=== PATIENT | male | born 1970 | race Two or more races ===

== ENCOUNTER 2016-07-01 18:36 | Inpatient (IN) | payer MEDICAID ==
[~2016-07-01] VITALS: Ht 177.8 cm; Wt 106.1 kg
[~2016-07-01 18:36] MED LIST: PRILOSEC20 MG ORAL; ZOFRAN4 MG ORAL
[2016-07-01 19:10] VITALS: BP 155/85
[2016-07-01] MEDS ORDERED: Nitroglycerin Subl 0.4mg tab (Bottle Of 25) SL PRN (19:30)
[2016-07-01] MEDS ORDERED: ATORVASTATIN CA20 MG ORAL (19:50)
[2016-07-01] MEDS ORDERED: AMIODARONE HCL200 MG ORAL (19:50)
[2016-07-01] MEDS ORDERED: MELATONIN1 MG PO (19:50)
[2016-07-01] MEDS ORDERED: PROPRANOLOL HCL10 MG ORAL (19:50)
[2016-07-01] MEDS ORDERED: NITROSTAT0.4 M2 SL (19:50)
[2016-07-01] MEDS ORDERED: DEPAKOTE250 MG PO (19:50)
[2016-07-01] MEDS ORDERED: HYDRALAZINE HCL25 M1 ORAL (19:50)
[2016-07-01] MEDS ORDERED: PRIMIDONE50 MG PO (19:50)
[2016-07-01] MEDS ORDERED: DIOVAN160 MG ORAL (19:50)
[2016-07-01] MEDS ORDERED: ARICEPT10 MG ORAL (19:50)
[2016-07-01] MEDS ORDERED: FOLIC ACID1 MG ORAL (19:50)
[2016-07-01] MEDS ORDERED: COLACE100 MG ORAL (19:50)
[2016-07-01] MEDS ORDERED: CALCIUM + D SO1 EACH PO (19:50)
[2016-07-01 20:10] VITALS: BP 137/71
[2016-07-01 20:25] LABS: BASOPHILS % (AUTO) 1.5 % (0.0-2.0); LYMPHOCYTES % (AUTO) 28.5 % (20.0-45.0); MEAN CORPUSCULAR HEMOGLOBIN 28.9 PG (27.0-31.0); MEAN CORPUSCULAR HGB CONC 32.6 G/DL (32.0-36.0); MEAN CORPUSCULAR VOLUME 89 FL (80-99); MEAN PLATELET VOLUME 5.9 FL (6.5-10.1); MONOCYTES % (AUTO) 11.5 % (1.0-10.0); NEUTROPHILS % (AUTO) 54.6 % (45.0-75.0); PLATELET COUNT 272 K/UL (150-450); RED BLOOD COUNT 4.65 M/UL (4.70-6.10); RED CELL DISTRIBUTION WIDTH 12.2 % (11.6-14.8); WHITE BLOOD COUNT 6.8 K/UL (4.8-10.8)
[2016-07-01 20:34] LABS: ALANINE AMINOTRANSFERASE 16 U/L (3-41); ALBUMIN/GLOBULIN RATIO 1.5 (1.0-2.7); ANION GAP 15 (5-15); ASPARTATE AMINO TRANSFERASE 17 U/L (5-40); CALCIUM 9.4 mg/dL (8.6-10.2); CARBON DIOXIDE 26 mEQ/L (20-30); CHLORIDE 100 mEQ/L (98-107); CREATININE 0.9 mg/dL (0.7-1.2); GLOMERULAR FILTRATION RATE > 60 mL/min (>60); HEMOLYSIS 7; POTASSIUM 4.1 mEQ/L (3.4-4.9); SODIUM 141 mEQ/L (135-145); TOTAL PROTEIN 7.5 g/dL (6.6-8.7)
[2016-07-01 20:35] LABS: TROPONIN I < 0.30 ng/mL (<=0.30)
[2016-07-01 20:46] LABS: CKMB 2.7 ng/mL (< 6.7)
--- NOTE | 2016-07-01 21:44 | Emergency Room Report ---
History of Present Illness General Chief Complaint: Hypertension Source: Patient Present Illness HPI 45-year-old male presents ED for evaluation. Patient states he's been having chest pain x1 day. Pain is sharp, left-sided, 7/10, radiating up the neck and down the shoulder. No aggravating relieving factors. Denies shortness of breath. Denies fevers chills. Notes history of hypertension and states that he ran out of his blood pressure medication 3 months ago. Denies smoking or drug use. Denies any other associated symptoms Allergies: Coded Allergies: No Known Allergies (Unverified , 09/13/15) Patient History Past Medical History: HTN Past Surgical History: none Pertinent Family History: none Social History: Denies: alcohol use, drug use, smoking Immunizations: UTD Reviewed Nursing Documentation: PMH: Agreed, PSxH: Agreed Nursing Documentation-PMH Past Medical History: No History, Except For Hx Hypertension: Yes Review of Systems All Other Systems: negative except mentioned in HPI Physical Exam Vital Signs Date Time Temp Pulse Resp B/P Pulse Ox O2 Delivery O2 Flow Rate FiO2 07/01/16 19:05 98.1 75 16 155/85 99 Room Air Sp02 EP Interpretation: reviewed, normal General Appearance: no apparent distress, alert, GCS 15, non-toxic Head: normocephalic, atraumatic Eyes: bilateral eye PERRL, bilateral eye normal inspection ENT: hearing grossly normal, normal pharynx, no angioedema, normal voice Neck: full range of motion, supple/symm/no masses Respiratory: chest non-tender, lungs clear, normal breath sounds, speaking full sentences Cardiovascular #1: regular rate, rhythm, no edema Cardiovascular #2: 2+ carotid (R), 2+ carotid (L), 2+ radial (R), 2+ radial (L) , 2+ dorsalis pedis (R), 2+ dorsalis pedis (L) Gastrointestinal: normal bowel sounds, non tender, soft, non-distended, no guarding, no rebound Rectal: deferred Genitourinary: normal inspection, no CVA tenderness Musculoskeletal: back normal, gait/station normal, normal range of motion, non- tender Neurologic: alert, oriented x3, responsive, motor strength/tone normal, sensory intact, speech normal Psychiatric: judgement/insight normal, memory normal, mood/affect normal, no suicidal/homicidal ideation Reflexes: 3+ bicep (R), 3+ bicep (L), 3+ tricep (R), 3+ tricep (L), 3+ knee (R) , 3+ knee (L) Skin: normal color, no rash, warm/dry, well hydrated Lymphatic: no adenopathy Medical Decision Making Diagnostic Impression: Primary Impression: ACS (acute coronary syndrome) ER Course Hospital Course 45-year-old male presents ED complaining of left-sided chest pain, h/o hypertension Differential diagnoses include: MT/unstable angina, contusion, muscle strain, PTX, rib fracture Clinical course Patient placed on stretcher. on family practice doctor. After initial history and physical I ordered labs, EKG, chest x-ray, ASA, NTG labs reviewed- no leukocytosis, hb/hct stable, electrolytes ok, trop negative Chest x-ray- no acute process EKG - no acute ischemic changes Case discussed with Dr. Edmond and he agreed to accept the patient to his service for further care and support I. I feel this is a highly complex case requiring extensive working including EKG/Rhythm strip, Xray/CT/US, Blood/urine lab work, repeat exams while in ED, and administration of strong opiates/narcotics for pain control, admission to hospital or close patient follow up. Diagnosis - ACS admitted to telemetry in serious condition Labs Test 07/01/16 19:57 White Blood Count 6.8 K/UL (4.8-10.8) Red Blood Count 4.65 M/UL (4.70-6.10) Hemoglobin 13.4 G/DL (14.2-18.0) Hematocrit 41.2 % (42.0-52.0) Mean Corpuscular Volume 89 FL (80-99) Mean Corpuscular Hemoglobin 28.9 PG (27.0-31.0) Mean Corpuscular Hemoglobin Concent 32.6 G/DL (32.0-36.0) Red Cell Distribution Width 12.2 % (11.6-14.8) Platelet Count 272 K/UL (150-450) Mean Platelet Volume 5.9 FL (6.5-10.1) Neutrophils (%) (Auto) 54.6 % (45.0-75.0) Lymphocytes (%) (Auto) 28.5 % (20.0-45.0) Monocytes (%) (Auto) 11.5 % (1.0-10.0) Eosinophils (%) (Auto) 4.0 % (0.0-3.0) Basophils (%) (Auto) 1.5 % (0.0-2.0) Sodium Level 141 mEQ/L (135-145) Potassium Level 4.1 mEQ/L (3.4-4.9) Chloride Level 100 mEQ/L (98-107) Carbon Dioxide Level 26 mEQ/L (20-30) Anion Gap 15 (5-15) Blood Urea Nitrogen 11 mg/dL (7-23) Creatinine 0.9 mg/dL (0.7-1.2) Estimat Glomerular Filtration Rate > 60 mL/min (>60) Glucose Level 93 mg/dL (74-106) Calcium Level 9.4 mg/dL (8.6-10.2) Total Bilirubin < 0.2 mg/dL (0.0-1.2) Aspartate Amino Transf (AST/SGOT) 17 U/L (5-40) Alanine Aminotransferase (ALT/SGPT) 16 U/L (3-41) Alkaline Phosphatase 76 U/L (40-129) Total Creatine Kinase 154 U/L (38-174) Creatine Kinase MB 2.7 ng/mL (< 6.7) Creatine Kinase MB Relative Index 1.7 Troponin I < 0.30 ng/mL (<=0.30) Pro-B-Type Natriuretic Peptide 30 pg/mL (0-125) Total Protein 7.5 g/dL (6.6-8.7) Albumin 4.6 g/dL (3.5-5.2) Globulin 2.9 g/dL Albumin/Globulin Ratio 1.5 (1.0-2.7) EKG Diagnostic Results Rate: normal Rhythm: NSR ST Segments: no acute changes ASA given to the pt in ED: Yes Rhythm Strip Diag. Results EP Interpretation: yes Rhythm: NSR, no PVC's, no ectopy Chest X-Ray Diagnostic Results EP Interpretation: Yes Findings: no consolidation, no effusion, no pneumothorax, no acute cardiopulmonary disease Number of Views: 1 Last Vital Signs Date Time Temp Pulse Resp B/P Pulse Ox O2 Delivery O2 Flow Rate FiO2 07/01/16 19:53 133/72 07/01/16 19:05 98.1 75 16 99 Room Air Status: improved Disposition: ADMITTED INPATIENT Condition: Serious Referrals: NOT CHOSEN IPA/,REFERRING (PCP) GORDO MANZANARES M.D. Jul 01, 2016 21:44
[2016-07-01 22:24] VITALS: BP 141/91
[2016-07-02 00:19] VITALS: BP 130/82
--- NOTE | 2016-07-02 03:37 | History and Physical Report ---
DATE OF ADMISSION: 07/01/2016 REASON FOR ADMISSION: Chest pain. HISTORY OF PRESENT ILLNESS: The patient is a 45-year-old male, who has a history of hypertension and possibly atrial arrhythmias. He ran out of his medications about a month ago and has not taken anything. He developed chest pain and shortness of breath prompting him to come back to this emergency room. ALLERGIES: None. SOCIAL HISTORY: Negative for smoking, alcohol, or substance abuse. FAMILY HISTORY: Noncontributory. REVIEW OF SYSTEMS: Not remarkable. PHYSICAL EXAMINATION: VITAL SIGNS: Afebrile, blood pressure 155/85, pulse 75, and respirations 16. HEENT: Conjunctivae pink. Oropharynx clear. NECK: Supple. Carotid upstroke is without delay or bruits. LUNGS: Clear. CARDIAC: Regular rhythm and rate. Normal S1 and S2 with no murmur, rub, or gallop. ABDOMEN: Soft. EXTREMITIES: Good pulses and no edema. LABORATORY AND DIAGNOSTIC DATA: EKG, sinus rhythm with no acute process. Chest x-ray, no acute process. Troponin negative. IMPRESSION: 1. Acute coronary syndrome. 2. Hypertension, uncontrolled, off medications. PLAN: 1. Cardiac monitoring. 2. Serial troponins. 3. Oral aspirin. 4. Titrate antihypertensives including a beta-brenda. 5. Lipid panel to be checked. 6. Exercise stress test to follow once blood pressure controlled. Paco Edmond M.D. DR: INEZ JOB#: [id number] CC:
[2016-07-02 04:16] VITALS: BP 138/89
[2016-07-02 08:00] VITALS: BP 132/75
[2016-07-02 08:20] LABS: TROPONIN I < 0.30 ng/mL (<=0.30)
[2016-07-02 08:29] LABS: ALANINE AMINOTRANSFERASE 14 U/L (3-41); ALBUMIN/GLOBULIN RATIO 1.4 (1.0-2.7); ANION GAP 14 (5-15); ASPARTATE AMINO TRANSFERASE 15 U/L (5-40); CALCIUM 9.1 mg/dL (8.6-10.2); CARBON DIOXIDE 24 mEQ/L (20-30); CHLORIDE 102 mEQ/L (98-107); CHOLESTEROL 200 mg/dL (< 200); CHOLESTEROL/HDL RATIO 4.3 (3.3-4.4); CREATININE 0.9 mg/dL (0.7-1.2); GLOMERULAR FILTRATION RATE > 60 mL/min (>60); HEMOLYSIS 6; LDL CHOLESTEROL (CALC.) 124 mg/dL (60-99); POTASSIUM 4.3 mEQ/L (3.4-4.9); SODIUM 140 mEQ/L (135-145); TOTAL PROTEIN 6.9 g/dL (6.6-8.7)
[2016-07-02] MEDS ORDERED: Aspirin Baby 81mg ORAL SCH (09:00)
[2016-07-02] MEDS ORDERED: Influenza Virus Vaccine 0.5ml IM ONE (09:00)
[2016-07-02] MEDS ORDERED: Lisinopril 10mg tab ORAL SCH (09:00)
[2016-07-02 12:00] VITALS: BP 106/64
--- NOTE | 2016-07-02 12:55 | Diagnostic Imaging Report ---
Indication: Chest pain Technique: Single portable AP view of the chest. Findings: Comparison: 09/13/15 The bones and extra pulmonary soft tissues, cardiomediastinal silhouette, pulmonary vasculature and parenchyma, and pleural surfaces remain unremarkable. IMPRESSION: Negative portable AP chest, unchanged.
[2016-07-02 16:00] VITALS: BP 110/58
--- NOTE | 2016-07-03 19:28 | Discharge Summary ---
Discharge Summary Hospital Course Date of Admission Jul 01, 2016 at 21:24 Date of Discharge Jul 02, 2016 at 18:00 Admitting Diagnosis ACS HPI Roland Smith is a 45 year old male who was admitted on Jul 01, 2016 at 21:24 for Acute Coronary Syndrome Hospital Course [id number] Discharge Discharge Disposition Patient was discharged to Home (01) Discharge Diagnoses: Jeanette Lemus NP Jul 03, 2016 19:28
--- NOTE | 2016-07-04 01:07 | Discharge Summary 2 SIG ---
DATE OF ADMISSION: 07/01/2016 DATE OF DISCHARGE: 07/02/2016 BRIEF HOSPITAL COURSE: The patient is a 45-year-old male, who has history of hypertension and possibly atrial arrhythmia, ran out of his medications about a month ago and has developed chest pain and shortness of breath prompting him to come to emergency room. He was admitted for cardiac monitoring and was started on oral aspirin. Troponins were negative. EKG with sinus rhythm and no acute process. He underwent a treadmill stress test. Results were nonischemic and the patient was discharged home. FINAL DIAGNOSES: 1. Chest pain. 2. Hypertension, controlled, off medications. Paco Edmond M.D. I have been assigned to dictate discharge summary on this account and I was not involved in the patient's management. Jeanette Lemus N.P. DR: JESSE JOB#: [id number] CC:
--- NOTE | 2016-07-04 16:10 | Cardiology Report ---
APPROVED REPORT EKG Measurement Heart [id number] Normal sinus rhythm Normal ECG
== END 2016-07-02 18:00 | disposition home or self-care (01) | DRG 203 ==
LOC: EMR 21:00 → OBSVTOIN 21:24 → 2E 21:24 → INTOOBSV 21:24 → EDBEDREQ 22:45
DX: R07.9 Chest pain, unspecified (principal); I10 Essential (primary) hypertension; Z23 Encounter for immunization
CPT/HCPCS: 36415; 71010; 80053; 80061; 82550; 82553; 83880; 84443; 84484; 85025; 93005; 93017; G0378; Q2036